=== PATIENT | male | born 1985 | race Caucasian/White ===

== ENCOUNTER 2019-12-02 21:24 | Emergency (ER) | payer OTHER, SELFPAY ==
[2019-12-02 21:26] VITALS: BP 128/74; PULSE 83; RESP 18; TEMP 36.6; O2SAT 98
--- NOTE | 2019-12-02 21:34 | ECG_ITS ---
Measurements Intervals [place] Rate: 81 P: 69 [place]: 197 QRS: 67 QRSD: 89 T: 35 QT: 343 QTc: 399 Interpretive Statements SINUS RHYTHM BASELINE WANDER- III, AVF, V1-V2, V6 NORMAL ECG Electronically Signed On 12-03-2019 13:29:23 CDT by Yeyo Escalante D.O.
--- NOTE | 2019-12-02 21:42 | PC.NURSE ---
Pt arrived hyperventilating and talking rapidly. Pt states he has numbness to R arm and pain to R chest. Pt states he woke up to these symptoms after drinking a 12 pack of beer and passing out. Pt states he did not do any drugs. Pt states he has never had this happen before. Pt denies trauma or injury to arm. Pt denies increased stress. Pt is A&Ox4. Pt speech is pressured. Pt states he has ETOH abuse issues. Pt girlfriend at bedside. Pt has call light in reach
--- NOTE | 2019-12-02 21:57 | ED.GENADULT ---
HPI - General Adult General Chief complaint: Chest Pain Stated complaint: chest pain Time Seen by Provider: 12/02/19 21:25 History of Present Illness HPI narrative: Patient is a 34-year-old male who presents the ER with complaints of chest tightness and right arm numbness. Symptoms began suddenly within the last hour. Patient had drank a 12 pack of [place] light and then fallen asleep on the couch. He woke up and began having the chest discomfort with this right arm numbness. No modifying factors. Denies any trauma or fall. No nausea/vomiting/dizziness. Reports mild shortness of breath with this. Said no runny nose/sore throat/productive cough. Patient does report that he is having decreased strength in his right arm to go along with his numbness. He also reports he is only here because his girlfriend wanted him, he does not want to be here. Review of Systems Review of Systems: All systems reviewed & are unremarkable except as noted in HPI and below Constitutional: Constitutional: Denies chills, Denies fever(s) and Denies weakness ENT: Denies nasal congestion and Denies sore throat Cardiovascular: Cardiovascular: Reports chest pain and Denies radiating jaw, neck or arm pain Respiratory: Respiratory: Denies chest congestion, Denies cough, Reports dyspnea and Denies wheezing Musculoskeletal: Comments: Reports decreased strength in the right arm. PMFSH Past Medical History Medical History (Updated 12/02/19 @ 22:11 by Dawit Mendosa MD) No pertinent past medical history Surgical History Surgical History (Updated 12/02/19 @ 22:06 by Dawit Mendosa MD) H/O skin graft Right lower extremity Social History Social History (Updated 12/02/19 @ 22:06 by Dawit Mendosa MD) Alcohol use details: Reports regular alcohol use. Gender identity (if verbalized by the patient): Male Exam Narrative: Exam Narrative: GENERAL: Well-appearing, well-nourished, and in no acute distress. HEAD: Normocephalic, atraumatic. ENT: Mucous membranes moist. CHEST: Clear to auscultation. No respiratory distress. HEART: Regular rate and rhythm. Normal peripheral pulses in the upper extremities.. ABDOMEN: Soft, nontender, nondistended. EXTREMITIES: Normal range of motion of the right upper extremity, does not seem to be flaccid patient is not cooperative with range of motion/strength exam. No edema. Moving bilateral lower extremities and RUE well. SKIN: Warm, dry, no rash. NEURO: Alert and oriented x3. Reports decreased sharp sensation in the right upper extremity. Course Course Emergency Course: After history and exam patient decided he wanted to leave AGAINST MEDICAL ADVICE. He is educated that he would be risking loss of life/limb and possible permanent disability. He felt these were appropriate risks and opted to leave. Vital Signs Vital signs: Vital Signs Temperature 97.9 F 12/02/19 21:26 Pulse Rate 83 12/02/19 21:26 Respiratory Rate 18 12/02/19 21:26 Blood Pressure 128/74 12/02/19 21:26 Pulse Oximetry 98 12/02/19 21:26 Temperature 97.9 F 12/02/19 21:26 Pulse Rate 83 12/02/19 21:26 Respiratory Rate 18 12/02/19 21:26 Blood Pressure 128/74 12/02/19 21:26 Pulse Oximetry 98 12/02/19 21:26 Medical Decision Making Vital Signs Vital Signs: Vital Signs Temperature 97.9 F 12/02/19 21:26 Pulse Rate 83 12/02/19 21:26 Respiratory Rate 18 12/02/19 21:26 Blood Pressure 128/74 12/02/19 21:26 Pulse Oximetry 98 12/02/19 21:26 Temperature 97.9 F 12/02/19 21:26 Pulse Rate 83 12/02/19 21:26 Respiratory Rate 18 12/02/19 21:26 Blood Pressure 128/74 12/02/19 21:26 Pulse Oximetry 98 12/02/19 21:26 Lab Data Result diagrams: 12/02/19 21:52 12/02/19 21:52 Labs: Lab Results 12/02/19 12/02/19 12/02/19 Range/Units 21:52 21:52 21:52 WBC Pending RBC Pending Hgb Pending Hct Pending MCV Pending M
[2019-12-02 21:58] LABS: Basophils Absolute Auto 0.1 K/mm3 (0.0-0.1); Basophils Percent Auto 1.1 % (0.2-1.2); Eosinophils Absolute Auto 0.6 K/mm3 (0-0.3); Eosinophils Percent Auto 4.4 % (0-4.4); Hematocrit 52.4 % (42.0-52.0); Hemoglobin 18.3 g/dL (14.0-18.0); Immature Granulocyte Absolute 0.03 K/mm3 (0.00-0.031); Immature Granulocyte Percent A 0.2 % (0-0.5); Lymphocytes Absolute Auto 4.04 K/mm3 (0.9-3.2); Lymphocytes Percent Auto 32.6 % (18.3-44.2); Mean Corpuscular HGB Conc 34.9 g/dl (32-36); Mean Corpuscular Hemoglobin 31.1 pg (26-34); Mean Platelet Volume 9.1 fl (7.4-10.4); Monocytes Absolute Auto 0.7 K/mm3 (0.1-0.6); Monocytes Percent Auto 5.7 % (2.6-8.5); Neutrophils Absolute Auto 6.9 K/mm3 (1.3-6.7); Platelet Count Result 476 k/mm3 (150-375); Red Blood Count 5.89 M/mm3 (4.6-6.20); Red Cell Distribution Width 12.6 % (11.5-14.5); White Blood Count 12.4 K/mm3 (4.5-10.0)
[2019-12-02 22:17] LABS: Ethanol 75 mg/dL (<10)
[2019-12-02 22:39] LABS: Troponin I < 0.012 ng/mL (0.000-0.034)
== END 2019-12-02 21:58 | disposition left against medical advice (07) ==
LOC: ANHED 21:54
PROVIDERS: Emergency Provider Emergency Medicine
DX: R07.89 Other chest pain (principal); R20.0 Anesthesia of skin
CPT/HCPCS: 36415; 80307; 84484; 85025; 85380; 85610; 85730; 93005; 99284

== ENCOUNTER 2020-01-04 22:39 | Emergency (ER) | payer OTHER, SELFPAY ==
[2020-01-04 22:48] VITALS: BP 143/74; PULSE 92; RESP 42; TEMP 36.2; O2SAT 98
--- NOTE | 2020-01-04 23:01 | ECG_ITS ---
Measurements Intervals [place] Rate: 77 P: 60 [place]: 194 QRS: 58 QRSD: 115 T: 34 QT: 363 QTc: 413 Interpretive Statements SINUS RHYTHM INTRAVENTRICULAR CONDUCTION DELAY DELAYED PRECORDIAL R/S TRANSITION BASELINE WANDER- I, II, III, AVR, AVL, AVF, V1-V6 BORDERLINE ECG Electronically Signed On 01-05-2020 7:12:04 CDT by Yeyo Escalante D.O.
--- NOTE | 2020-01-04 23:29 | PC.NURSE ---
pt out of bed stating he wanted to go home. pt states he felt better. spoke with about breathing exercies and when to return to the ed.
--- NOTE | 2020-01-04 23:29 | PC.NURSE ---
Patient seen walking out of the ED, fully dressed. Security went after patient to ensure no IV was in place. Patient's primary RN notified, stated there was no IV placed in patient.
== END 2020-01-04 23:30 | disposition left against medical advice (07) ==
PROVIDERS: Emergency Provider General Practice
DX: R06.02 Shortness of breath (principal)
CPT/HCPCS: 93005; 99199